=== PATIENT | female | born 1990 | race Caucasian/White ===

== ENCOUNTER 2017-02-02 03:04 | Emergency (ER) | payer MEDICAID ==
[~2017-02-02] VITALS: Ht 154.9 cm; Wt 49.4 kg
[2017-02-02 03:07] VITALS: BP 103/65
[2017-02-02] MEDS ORDERED: LIDOCAINE 1%, 20ML ONE (04:38)
== END 2017-02-02 05:49 | disposition home or self-care (01) ==
LOC: ED 05:43
DX: L02.213 Cutaneous abscess of chest wall (principal); F17.210 Nicotine dependence, cigarettes, uncomplicated; Z88.1 Allergy status to other antibiotic agents
CPT/HCPCS: 10060

== ENCOUNTER 2018-05-26 17:57 | Emergency (ER) | payer MEDICAID ==
[~2018-05-26] VITALS: Ht 154.9 cm; Wt 47.7 kg
[2018-05-26] MEDS ORDERED: HYDROmorphone 2 MG/ML, 1ML ONE (18:48)
[2018-05-26] MEDS ORDERED: ONDANSETRON ODT 4 MG ONE (18:48)
[2018-05-26 18:54] LABS: MEAN CORPUSCULAR HEMOGLOBIN 16.6 pg (27.0-34.8); MEAN CORPUSCULAR HGB CONC 30.3 g/dL (32.4-35.8); MEAN CORPUSCULAR VOLUME 54.7 fL (80-100); MEAN PLATELET VOLUME 8.4 fL (7.4-10.4); PLATELET COUNT 371 x10^3/uL (130-400); RED BLOOD COUNT 4.55 x10^6/uL (3.82-5.3); RED CELL DISTRIBUTION WIDTH 21.1 % (9.6-15.2)
[2018-05-26] MEDS ORDERED: ONDANSETRON ODT 4 MG PO ONE (19:00)
[2018-05-26] MEDS ORDERED: HYDROmorphone 1 MG/ML, 1ML IM ONE (19:00)
[2018-05-26 19:02] LABS: ALBUMIN 3.6 g/dL (3.4-5.0); ANION GAP 10 mmol/L (5-15); CALCIUM 8.7 mg/dL (8.5-10.1); CHLORIDE 103 mmol/L (98-107)
[2018-05-26 19:05] LABS: ALANINE AMINOTRANSFERASE 21 U/L (12-78); ALKALINE PHOSPHATASE 65 U/L (45-117); BILIRUBIN,TOTAL 0.7 mg/dL (0.2-1.0); CREATININE 0.64 mg/dL (0.55-1.02); TOTAL PROTEIN 7.6 g/dL (6.4-8.2)
[2018-05-26 19:10] LABS: HCG UR SG 1.013 (1.003-1.030)
[2018-05-26 19:11] LABS: CULTURE INDICATED? YES; MICROSCOPIC INDICATED
[2018-05-26 19:19] LABS: ANISOCYTOSIS 1+; BASOPHILS # (AUTO) 0.01 x10^3/uL (0-0.1); BASOPHILS % (AUTO) 0 % (0-1); EOSINOPHILS # (AUTO) 0.01 x10^3/uL (0-0.4); EOSINOPHILS % (AUTO) 0 % (1-7); LYMPHOCYTES % (AUTO) 14 % (22-44); MD MORPH REVIEW ONLY; MONOCYTES # (AUTO) 0.69 x10^3/uL (0.2-0.8); MONOCYTES % (AUTO) 6 % (2-9); NEUTROPHILS # (AUTO) 9.61 x10^3/uL (1.8-6.8); NEUTROPHILS % (AUTO) 80 % (42-75)
[2018-05-26 19:20] LABS: HYPOCHROMIA 1+; MICROCYTOSIS 2+; OVALOCYTES 1+; POLYCHROMASIA 1+; TARGET CELLS 1+
[2018-05-26 19:21] LABS: <PLATELET ESTIMATE> ADEQUATE; <PLT MORPHOLOGY> NORMAL PLT MORPH
[2018-05-26 19:27] LABS: % IRON SATURATION 2 % (20-55); IRON LEVEL 11 mcg/dL (50-170); TOTAL IRON BINDING CAPACITY 505 mcg/dL (250-450)
[2018-05-26] MEDS ORDERED: SODIUM CHLORIDE FLUSH 10ML SYR IVF ONE (19:30)
[2018-05-26] MEDS ORDERED: SODIUM CHLORIDE 0.9% 1,000ML IVBOLUS ONE (19:30)
[2018-05-26 19:37] LABS: INTERNATIONAL NORMALIZED RATIO 1.06 (0.93-1.1); PROTHROMBIN TIME 11.2 Seconds (9.6-11.5)
[2018-05-26] MEDS ORDERED: CEFDINIR 300 MG CAPSULE PO ONE (20:00)
[2018-05-26] MEDS ORDERED: CEFDINIR 300 MG CAPSULE ONE (20:06)
[2018-05-26 20:17] VITALS: BP 115/67
== END 2018-05-26 20:53 | disposition home or self-care (01) ==
LOC: ED 20:47
DX: N39.0 Urinary tract infection, site not specified (principal); R10.2 Pelvic and perineal pain; D50.0 Iron deficiency anemia secondary to blood loss (chronic); Z88.1 Allergy status to other antibiotic agents; J45.909 Unspecified asthma, uncomplicated
CPT/HCPCS: 36415; 76830; 80053; 81001; 81025; 83540; 83550; 83690; 85025; 85610; 87086; 96372; 99284; J1170; J7030; Q0162

== ENCOUNTER 2018-11-23 16:05 | Emergency (ER) | payer SELFPAY ==
[~2018-11-23] VITALS: Ht 154.9 cm; Wt 47.7 kg
[2018-11-23 16:11] VITALS: BP 102/66
[2018-11-23] MEDS ORDERED: HYDROcodone/APAP 5/325 TABLET PO ONE (16:30)
[2018-11-23] MEDS ORDERED: IBUPROFEN 600 MG TABLET PO ONE (16:30)
[2018-11-23] MEDS ORDERED: IBUPROFEN 200 MG TABLET ONE (16:40)
[2018-11-23] MEDS ORDERED: HYDROcodone/APAP 5/325 TABLET ONE (16:40)
--- NOTE | 2018-11-23 16:45 | NUR ---
MEDICATED FOR RIGHT FACIAL PAIN WITH NOTABLE SWELLING
[2018-11-23] MEDS ORDERED: LIDOCAINE 1%-EPI 1:100K, 20ML ONE (16:54)
[2018-11-23] MEDS ORDERED: LIDOCAINE 1%-EPI 1:100K, 20ML SQ ONE (17:00)
[2018-11-23] MEDS ORDERED: CLINDAMYCIN 150 MG/ML, 6ML ONE (17:20)
[2018-11-23] MEDS ORDERED: CLINDAMYCIN 150 MG/ML, 6ML IM ONE (17:30)
--- NOTE | 2018-11-23 17:35 | NUR ---
AFTER I&D BY PA, MEDICATED WITH ANTIBIOTIC PER ORDERS
== END 2018-11-23 18:01 | disposition home or self-care (01) ==
LOC: ED 17:45
DX: K04.7 Periapical abscess without sinus (principal); J45.909 Unspecified asthma, uncomplicated; F17.200 Nicotine dependence, unspecified, uncomplicated; Z72.9 Problem related to lifestyle, unspecified
CPT/HCPCS: 41800; 96372; 99283; S0077

== ENCOUNTER 2018-11-24 12:33 | Emergency (ER) | payer SELFPAY ==
--- NOTE | 2018-11-24 12:50 | NUR ---
BLUE CRABBER. NO ANSWER X1 TO TRIAGE AT THIS TIME.
--- NOTE | 2018-11-24 13:00 | NUR ---
NO ANSWER FOR TRIAGE @ 1300
--- NOTE | 2018-11-24 13:17 | NUR ---
DRAWING IN HAND. NO ANSWER TO TRIAGE X3 AT THIS TIME [id number]
== END 2018-11-24 13:37 | disposition left against medical advice (07) ==
LOC: ED 13:31
DX: Z53.21 Procedure and treatment not carried out due to patient leaving prior to being seen by health care provider (principal)

== ENCOUNTER 2019-10-24 00:55 | Emergency (ER) | payer OTHER ==
[~2019-10-24] VITALS: Ht 154.9 cm; Wt 54.6 kg
[2019-10-24] MEDS ORDERED: ACETAMINOPHEN 325 MG TABLET PO ONE (02:00)
[2019-10-24 02:44] LABS: MEAN CORPUSCULAR HEMOGLOBIN 19.9 pg (27.0-34.8); MEAN CORPUSCULAR HGB CONC 31.4 g/dL (32.4-35.8); MEAN CORPUSCULAR VOLUME 63.2 fL (80-100); PLATELET COUNT 311 x10^3/uL (130-400); RED BLOOD COUNT 5.17 x10^6/uL (3.82-5.3)
[2019-10-24 02:51] LABS: ALANINE AMINOTRANSFERASE 27 U/L (12-78); ALBUMIN 3.1 g/dL (3.4-5.0); ANION GAP 8 mmol/L (5-15); CALCIUM 8.5 mg/dL (8.5-10.1); CHLORIDE 105 mmol/L (98-107); CREATININE 0.74 mg/dL (0.55-1.02); MD YES
[2019-10-24 02:53] LABS: ANISOCYTOSIS 2+; BAND#(MANUAL) 0.08 x10^3/uL; BANDS%(MANUAL) 1 % (0-7); EOS#(MANUAL) 0.16 x10^3/uL (0.0-0.4); EOS% (MANUAL) 2 % (1-7); LYMPH#(MANUAL) 2.03 x10^3/uL (1-3.4); LYMPHS% (MANUAL) 25 % (22-44); MICROCYTOSIS 2+; MONOS#(MANUAL) 0.49 x10^3/uL (0.3-2.7); MONOS% (MANUAL) 6 % (2-9); OVALOCYTES 1+; POLYCHROMASIA 1+; REACTIVE LYMPHS # (MANUAL) 0.08 x10^3/uL (0-0); REACTIVE LYMPHS % (MANUAL) 1 % (0-0); SEG#(MANUAL) 5.27 x10^3/uL (1.8-6.8); SEGS% (MANUAL) 65 % (42-75)
[2019-10-24 02:54] LABS: <PLATELET ESTIMATE> ADEQUATE; HYPOCHROMIA 1+; LARGE PLATELETS 1+
[2019-10-24 03:09] LABS: ALKALINE PHOSPHATASE 60 U/L (45-117); TOTAL PROTEIN 7.4 g/dL (6.4-8.2)
[2019-10-24 03:11] LABS: BILIRUBIN,TOTAL < 0.1 mg/dL (0.2-1.0)
[2019-10-24] MEDS ORDERED: ACETAMINOPHEN 325 MG TABLET ONE (03:29)
[2019-10-24 03:51] LABS: CULTURE INDICATED? YES; MICROSCOPIC INDICATED
[2019-10-24 04:34] VITALS: BP 117/64
== END 2019-10-24 04:35 | disposition home or self-care (01) ==
LOC: ED 01:45
DX: O46.91 Antepartum hemorrhage, unspecified, first trimester (principal); O99.611 Diseases of the digestive system complicating pregnancy, first trimester; O23.41 Unspecified infection of urinary tract in pregnancy, first trimester; K02.9 Dental caries, unspecified; Z3A.01 Less than 8 weeks gestation of pregnancy
CPT/HCPCS: 36415; 76801; 80053; 81001; 84702; 85025; 86901; 87086; 99284

== ENCOUNTER 2019-10-25 05:48 | Emergency (ER) | payer SELFPAY ==
[~2019-10-25] VITALS: Ht 154.9 cm; Wt 54.5 kg
[2019-10-25 05:51] VITALS: BP 113/75
== END 2019-10-25 06:18 | disposition home or self-care (01) ==
LOC: ED 06:16
DX: O99.619 Diseases of the digestive system complicating pregnancy, unspecified trimester (principal); O99.330 Smoking (tobacco) complicating pregnancy, unspecified trimester; K08.89 Other specified disorders of teeth and supporting structures; K02.9 Dental caries, unspecified; F17.290 Nicotine dependence, other tobacco product, uncomplicated; Z3A.00 Weeks of gestation of pregnancy not specified
CPT/HCPCS: 99282

== ENCOUNTER 2020-01-23 02:51 | Outpatient (CLI) | payer MEDICAID ==
[~2020-01-23] VITALS: Ht 154.9 cm; Wt 57.3 kg
[2020-01-23 03:17] LABS: MICROSCOPIC INDICATED
[2020-01-23 03:22] LABS: AMPHETAMINE SCREEN, URINE Positive (Negative); BARBITURATE SCREEN, URINE Negative (Negative); BENZODIAZEPINE SCREEN, URINE Negative (Negative); CANNABINOID SCREEN, URINE Positive (Negative); COCAINE SCREEN, URINE Negative (Negative); METHADONE SCREEN, URINE Negative (Negative); OPIATE SCREEN, URINE Negative (Negative)
[2020-01-23] MEDS ORDERED: CEFTRIAXONE 1,000 MG IM ONE (04:00)
== END 2020-01-23 04:00 | disposition home or self-care (01) ==
LOC: LDOP 02:51
PROVIDERS: ATTEND Obstetrics & Gynecology
DX: O23.42 Unspecified infection of urinary tract in pregnancy, second trimester (principal); O99.332 Smoking (tobacco) complicating pregnancy, second trimester; F17.210 Nicotine dependence, cigarettes, uncomplicated; Z3A.21 21 weeks gestation of pregnancy
CPT/HCPCS: 80307; 81001; 87086; 96372; 99201; J0696; G0463

== ENCOUNTER 2020-06-01 10:24 | Outpatient (CLI) | payer MEDICAID ==
[~2020-06-01] VITALS: Ht 154.9 cm; Wt 75.0 kg
[2020-06-01 12:24] LABS: AMPHETAMINE SCREEN, URINE Positive (Negative); BARBITURATE SCREEN, URINE Negative (Negative); BENZODIAZEPINE SCREEN, URINE Negative (Negative); CANNABINOID SCREEN, URINE Negative (Negative); COCAINE SCREEN, URINE Negative (Negative); METHADONE SCREEN, URINE Negative (Negative); OPIATE SCREEN, URINE Negative (Negative)
[2020-06-01 13:15] LABS: BASOPHILS % (AUTO) 0 % (0-1); EOSINOPHILS % (AUTO) 0 % (1-7); LYMPHOCYTES % (AUTO) 18 % (22-44); MEAN CORPUSCULAR HEMOGLOBIN 18.7 pg (27.0-34.8); MEAN CORPUSCULAR HGB CONC 31.2 g/dL (32.4-35.8); MEAN PLATELET VOLUME 9.2 fL (7.4-10.4); MONOCYTES % (AUTO) 3 % (2-9); NEUTROPHILS % (AUTO) 78 % (42-75); PLATELET COUNT 221 x10^3/uL (130-400); RED BLOOD COUNT 4.86 x10^6/uL (3.82-5.3)
[2020-06-01 14:06] LABS: MD MORPH REVIEW ONLY
[2020-06-01 14:07] LABS: ANISOCYTOSIS 1+
[2020-06-01 14:08] LABS: HYPOCHROMIA 2+; OVALOCYTES 1+; POLYCHROMASIA 1+
[2020-06-01 14:09] LABS: <PLATELET ESTIMATE> ADEQUATE; LARGE PLATELETS 1+
== END 2020-06-01 12:50 | disposition home or self-care (01) ==
LOC: LDOP 10:24
PROVIDERS: ATTEND Obstetrics & Gynecology
DX: O26.893 Other specified pregnancy related conditions, third trimester (principal); R10.9 Unspecified abdominal pain; Z3A.40 40 weeks gestation of pregnancy
CPT/HCPCS: 36415; 59025; 80307; 85025; 86592; 86762; 86850; 86900; 87340; 87806; G0475

== ENCOUNTER 2020-06-03 00:02 | Outpatient (CLI) | payer MEDICAID ==
[~2020-06-03] VITALS: Ht 154.9 cm; Wt 75.0 kg
[2020-06-03 00:27] VITALS: BP 131/83
[2020-06-03 00:48] LABS: AMPHETAMINE SCREEN, URINE Negative (Negative); BARBITURATE SCREEN, URINE Negative (Negative); BENZODIAZEPINE SCREEN, URINE Negative (Negative); CANNABINOID SCREEN, URINE Negative (Negative); COCAINE SCREEN, URINE Negative (Negative); METHADONE SCREEN, URINE Negative (Negative); OPIATE SCREEN, URINE Negative (Negative)
[2020-06-03 00:50] LABS: MICROSCOPIC INDICATED
[2020-06-03 01:10] LABS: PROTEIN/CREATININE RATIO,URINE 3784 (0-200); TOTAL PROTEIN,URINE RANDOM 207 mg/dL (0-12)
[2020-06-03 01:16] LABS: BASOPHILS % (AUTO) 1 % (0-1); EOSINOPHILS % (AUTO) 1 % (1-7); LYMPHOCYTES % (AUTO) 18 % (22-44); MEAN PLATELET VOLUME 9.6 fL (7.4-10.4); MONOCYTES % (AUTO) 6 % (2-9); NEUTROPHILS % (AUTO) 75 % (42-75); PLATELET COUNT 181 x10^3/uL (130-400); RED BLOOD COUNT 4.25 x10^6/uL (3.82-5.3)
[2020-06-03 01:22] LABS: MD NO
[2020-06-03 01:28] LABS: ALANINE AMINOTRANSFERASE 13 U/L (12-78); ALBUMIN 1.9 g/dL (3.4-5.0); ANION GAP 8 mmol/L (5-15); CALCIUM 8.4 mg/dL (8.5-10.1); CHLORIDE 109 mmol/L (98-107); CREATININE 0.71 mg/dL (0.55-1.02)
[2020-06-03 01:30] LABS: ALKALINE PHOSPHATASE 146 U/L (45-117); BILIRUBIN,TOTAL 0.2 mg/dL (0.2-1.0); TOTAL PROTEIN 5.7 g/dL (6.4-8.2)
== END 2020-06-03 02:41 | disposition home or self-care (01) ==
LOC: LDOP 00:02
PROVIDERS: ATTEND Obstetrics & Gynecology Female Pelvic Medicine and Reconstructive Surgery
DX: O98.513 Other viral diseases complicating pregnancy, third trimester (principal); O12.03 Gestational edema, third trimester; Z3A.39 39 weeks gestation of pregnancy
CPT/HCPCS: 36415; 59025; 80053; 80307; 81001; 82570; 84156; 84550; 85025; 87635

== ENCOUNTER 2020-06-03 06:07 | Inpatient (IN) | payer MEDICAID ==
[~2020-06-03] VITALS: Ht 154.9 cm; Wt 75.0 kg
[2020-06-03] MEDS ORDERED: OXYTOCIN 30U/ 0.9% NaCL 500ML 500 ML ONE ×2 (06:29→11:02)
[2020-06-03] MEDS ORDERED: TERBUTALINE 1 MG/ML, 1ML IVPush PRN (06:30)
[2020-06-03] MEDS ORDERED: D5%-LACTATED RINGERS 1,000 ML IV SCH (06:30)
[2020-06-03] MEDS ORDERED: ONDANSETRON 2MG/ML, 2ML IVPush PRN (06:30)
[2020-06-03] MEDS ORDERED: OXYTOCIN 30U/ 0.9% NaCL 500ML 500 ML IV ONE (06:30)
[2020-06-03] MEDS ORDERED: TERBUTALINE 1 MG/ML, 1ML SQ PRN (06:30)
[2020-06-03] MEDS ORDERED: CALCIUM CARBONATE 500 MG TAB.CHEW PO PRN (06:30)
[2020-06-03] MEDS ORDERED: FENTANYL PF 100 MCG/2ML IV PRN (06:30)
[2020-06-03] MEDS ORDERED: CLINDAMYCIN PMX 900MG/50ML 50 ML IVPB SCH (06:30)
[2020-06-03] MEDS ORDERED: CLINDAMYCIN PMX 900MG/50ML 0 ML ONE (06:30)
[2020-06-03] MEDS ORDERED: FENTANYL PF 100 MCG/2ML IVPush PRN (06:30)
[2020-06-03] MEDS ORDERED: NEWBORN KIT ONE (06:51)
[2020-06-03] MEDS ORDERED: CLINDAMYCIN PMX 900MG/50ML 50 ML ONE (06:57)
[2020-06-03] MEDS ORDERED: FENTANYL PF 100 MCG/2ML ONE (07:09)
[2020-06-03] MEDS ORDERED: BUPIVACAINE 0.25% ONE (07:33)
[2020-06-03] MEDS ORDERED: FENTANYL/BUPIV./NS/PF 250 ML EPIDCONT ONE (07:34)
[2020-06-03] MEDS: LACTATED RINGERS 1,000 ML IV SCH ×2 (07:50→08:15)
[2020-06-03] MEDS ORDERED: FENTANYL/BUPIV./NS/PF 250 ML EPIDCONT SCH (08:00)
[2020-06-03] MEDS ORDERED: EPHEDRINE 50 MG/ML, 1ML IVPush PRN (08:00)
[2020-06-03] MEDS ORDERED: LACTATED RINGERS 1,000 ML IV SCH (08:00)
[2020-06-03] MEDS ORDERED: LACTATED RINGERS 1,000 ML IVBOLUS PRN (08:00)
[2020-06-03 09:04] LABS: AMPHETAMINE SCREEN, URINE Negative (Negative); BARBITURATE SCREEN, URINE Negative (Negative); BENZODIAZEPINE SCREEN, URINE Negative (Negative); CANNABINOID SCREEN, URINE Negative (Negative); COCAINE SCREEN, URINE Negative (Negative); METHADONE SCREEN, URINE Negative (Negative); MICROSCOPIC INDICATED; OPIATE SCREEN, URINE Negative (Negative)
[2020-06-03 09:07] LABS: BASOPHILS % (AUTO) 0 % (0-1); EOSINOPHILS % (AUTO) 0 % (1-7); LYMPHOCYTES % (AUTO) 11 % (22-44); MD NO; MEAN CORPUSCULAR HEMOGLOBIN 18.8 pg (27.0-34.8); MEAN CORPUSCULAR HGB CONC 30.9 g/dL (32.4-35.8); MEAN PLATELET VOLUME 9.4 fL (7.4-10.4); MONOCYTES % (AUTO) 6 % (2-9); NEUTROPHILS % (AUTO) 83 % (42-75); PLATELET COUNT 203 x10^3/uL (130-400); RED BLOOD COUNT 4.26 x10^6/uL (3.82-5.3); RED CELL DISTRIBUTION WIDTH 21.6 % (9.6-15.2)
[2020-06-03] MEDS ORDERED: ONDANSETRON 2MG/ML, 2ML IV PRN (11:00)
[2020-06-03] MEDS ORDERED: HYDROcodone/APAP 5/325 TABLET PO PRN ×2 (11:00)
[2020-06-03] MEDS ORDERED: ACETAMINOPHEN 325 MG TABLET PO PRN (11:00)
[2020-06-03] MEDS: OXYTOCIN 30U/ 0.9% NaCL 500ML 500 ML IV SCH ×2 (11:00→21:00)
[2020-06-03] MEDS ORDERED: MISOPROSTOL 200 MCG TABLET PR PRN (11:00)
[2020-06-03] MEDS ORDERED: METOCLOPRAMIDE 5 MG/ML, 2ML IV PRN (11:00)
[2020-06-03] MEDS ORDERED: SIMETHICONE 80 MG CHEW TAB PO PRN (11:00)
[2020-06-03] MEDS ORDERED: DOCUSATE 100 MG CAPSULE PO PRN (11:00)
[2020-06-03 12:55] VITALS: BP 155/98
[2020-06-03] MEDS: IBUPROFEN 600 MG TABLET PO PRN (13:12)
[2020-06-03] MEDS: NICOTINE 14MG/24 HR PATCH.TD24 TD SCH (16:11)
[2020-06-03 16:55] VITALS: BP 127/79
[2020-06-03 18:10] LABS: MEAN CORPUSCULAR HEMOGLOBIN 18.7 pg (27.0-34.8); MEAN CORPUSCULAR HGB CONC 31.1 g/dL (32.4-35.8); MEAN PLATELET VOLUME 8.9 fL (7.4-10.4); PLATELET COUNT 166 x10^3/uL (130-400); RED BLOOD COUNT 3.85 x10^6/uL (3.82-5.3); RED CELL DISTRIBUTION WIDTH 21.4 % (9.6-15.2)
[2020-06-03 18:20] LABS: MD YES
[2020-06-03 19:09] LABS: BAND#(MANUAL) 1.02 x10^3/uL; BANDS%(MANUAL) 6 % (0-7); LYMPH#(MANUAL) 1.53 x10^3/uL (1-3.4); LYMPHS% (MANUAL) 9 % (22-44); MONOS#(MANUAL) 0.51 x10^3/uL (0.3-2.7); MONOS% (MANUAL) 3 % (2-9); SEG#(MANUAL) 13.94 x10^3/uL (1.8-6.8); SEGS% (MANUAL) 82 % (42-75)
[2020-06-03 19:13] LABS: ANISOCYTOSIS 1+
[2020-06-03 19:14] LABS: HYPOCHROMIA 2+; POLYCHROMASIA 1+
[2020-06-03 19:15] LABS: <PLATELET ESTIMATE> ADEQUATE; OVALOCYTES 1+
[2020-06-03 19:16] LABS: LARGE PLATELETS 1+
[2020-06-03 19:45] VITALS: BP 126/82
[2020-06-04 00:45] VITALS: BP 123/81
[2020-06-04] MEDS: IBUPROFEN 600 MG TABLET PO PRN ×3 (02:50→21:57)
[2020-06-04 03:55] VITALS: BP 131/77
[2020-06-04] MEDS ORDERED: FLU VACC QS2020-21(6MOS UP)/PF 60MCG/0.5 ML SYR IM ONE (04:00)
[2020-06-04] MEDS: OXYTOCIN 30U/ 0.9% NaCL 500ML 500 ML IV SCH ×2 (07:00→17:00)
[2020-06-04 08:10] VITALS: BP 141/91
[2020-06-04] MEDS: PRENATAL VIT/IRON/FA 1 EACH TABLET PO SCH (12:41)
[2020-06-04] MEDS: NICOTINE 14MG/24 HR PATCH.TD24 TD SCH (12:42)
[2020-06-04 20:00] VITALS: BP 118/83
[2020-06-05] MEDS: PRENATAL VIT/IRON/FA 1 EACH TABLET PO SCH (09:00)
[2020-06-05] MEDS ORDERED: IBUP-1223 PO (11:44)
[2020-06-05] MEDS: NICOTINE 14MG/24 HR PATCH.TD24 TD SCH (13:53)
[2020-06-05] MEDS ORDERED: DIPH,PERTUSS(ACELL),TET VAC/PF NC IM-VACC ONE (16:30)
== END 2020-06-05 16:45 | disposition home or self-care (01) | DRG 807 ==
LOC: LDOP 06:07 → LDIP 06:29 → 2NW 12:30
PROVIDERS: ADMIT Obstetrics & Gynecology Female Pelvic Medicine and Reconstructive Surgery; ATTEND Obstetrics & Gynecology Female Pelvic Medicine and Reconstructive Surgery
PROC: 10E0XZZ Delivery of Products of Conception, External Approach (ICD-10-PCS; principal; 2020-06-03)
PROC: 0T9B70Z Drainage of Bladder with Drainage Device, Via Natural or Artificial Opening (ICD-10-PCS; 2020-06-03)
PROC: 3E0R3BZ Introduction of Anesthetic Agent into Spinal Canal, Percutaneous Approach (ICD-10-PCS; 2020-06-03)
PROC: 00HU33Z Insertion of Infusion Device into Spinal Canal, Percutaneous Approach (ICD-10-PCS; 2020-06-03)
PROC: 10907ZC Drainage of Amniotic Fluid, Therapeutic from Products of Conception, Via Natural or Artificial Opening (ICD-10-PCS; 2020-06-03)
DX: O77.0 Labor and delivery complicated by meconium in amniotic fluid (principal); Z37.0 Single live birth; Z3A.00 Weeks of gestation of pregnancy not specified; J45.909 Unspecified asthma, uncomplicated; O71.82 Other specified trauma to perineum and vulva; Z87.440 Personal history of urinary (tract) infections; Z88.0 Allergy status to penicillin
CPT/HCPCS: 36415; 80307; 81001; 82803; 85025; 86592; 86850; 86900; 87070; 87075; 87077; 87186; 87205; 88307; 90686; 90715; G0378; J3010; J7120

== ENCOUNTER 2020-12-18 09:18 | Emergency (ER) | payer MEDICAID ==
[~2020-12-18 09:18] MED LIST: IBUP-1223 PO
--- NOTE | 2020-12-18 09:21 | NUR ---
Pt called to triage and noted to be walking out in the parking lot towards car.
--- NOTE | 2020-12-18 09:31 | NUR ---
pt still not in lobby
--- NOTE | 2020-12-18 09:38 | NUR ---
nilx3. SCREENER REPORTS SEEING PT LEAVE THE PARKING LOT.
== END 2020-12-18 09:46 | disposition left against medical advice (07) ==
LOC: ED 09:40
DX: L50.9 Urticaria, unspecified (principal); Z53.21 Procedure and treatment not carried out due to patient leaving prior to being seen by health care provider

== ENCOUNTER 2021-02-12 16:01 | Emergency (ER) | payer MEDICAID ==
[~2021-02-12] VITALS: Ht 154.9 cm; Wt 56.5 kg
--- NOTE | 2021-02-12 17:13 | NUR ---
CC OF COUGH, HAQ, AND "POCKET OF PUS ON MY TONSIL". PT IS VACCINATED FOR COVID, HAS 8 MO BABY WHO IS AT DAY CARE AND IS ALSO SICK WITH SIMILAR SYMPTOMS.
[2021-02-12 20:02] VITALS: BP 116/75
--- NOTE | 2021-02-12 20:02 | NUR ---
Patient given discharge instructions and they have confirmed that they understand the instructions. Patient ambulatory with steady gait. NAD, all questions answered appropriately, denies additional needs at this time. No personal belongings left in room after discharge.
== END 2021-02-12 20:04 | disposition home or self-care (01) ==
LOC: ED 18:19
DX: U07.1 COVID-19 (principal); B34.9 Viral infection, unspecified; J45.909 Unspecified asthma, uncomplicated
CPT/HCPCS: 87081; 87880; 99283; U0003; U0005